=== PATIENT | male | born 1945 | race Caucasian/White ===

== ENCOUNTER 2025-01-08 09:33 | Inpatient (IN) | payer OTHER ==
[2025-01-08] MEDS ORDERED: NA CHLORIDE 0.9% 1,000 ML ONE (10:09)
[2025-01-08 10:17] LABS: Absolute Lymphocytes (CBC) 0.7 K/uL (0.7-4.9); Hematocrit 40.9 % (39.6-49.0); Hemoglobin 14.2 g/dL (13.6-17.9); MCH 30.7 pg (27.0-35.0); MCHC 34.7 g/dL (32.0-36.0); MCV 88.5 fL (80-100); MPV 8.2 fL (7.6-11.3); Nucleated RBC Absolute Count 0.0 (0-0); Nucleated Red Blood Cells % 0.0 % (0-0); RBC Red Blood Cell Count 4.62 M/uL (4.33-5.43); White Blood Count 9.90 thou/uL (4.3-10.9)
[2025-01-08 10:54] LABS: Glucose Level 186 mg/dL (74-106)
[2025-01-08 10:55] LABS: BUN Blood Urea Nitrogen > 150 mg/dL (7-18)
[2025-01-08 10:56] LABS: ALT/SGPT 21 U/L (16-61); AST/SGOT < 3 U/L (15-37)
[2025-01-08 10:57] LABS: Albumin 3.1 g/dL (3.4-5.0); Albumin/Globulin Ratio 0.8 (1.1-1.8); Alkaline Phosphatase 51 U/L (45-117); Globulin 3.8 g/dL (2.3-3.5); Lipase 243 U/L (13-75); Troponin High Sensitivity 16.9 (<58.9)
[2025-01-08 11:07] LABS: Anion Gap 30.6 mEq/L (5.0-15.0)
[2025-01-08 12:26] LABS: ALT/SGPT 22 U/L (16-61); Albumin 2.9 g/dL (3.4-5.0); Albumin/Globulin Ratio 0.8 (1.1-1.8); Alkaline Phosphatase 46 U/L (45-117); Anion Gap 29.7 mEq/L (5.0-15.0); BUN Blood Urea Nitrogen 167 mg/dL (7-18); Globulin 3.5 g/dL (2.3-3.5); Glucose Level 129 mg/dL (74-106)
[2025-01-08 12:33] LABS: AST/SGOT < 10 U/L (15-37); Potassium 7.7 mEq/L (3.5-5.1)
[2025-01-08 12:35] LABS: Potassium 7.6 mEq/L (3.5-5.1)
--- NOTE | 2025-01-08 13:13 | EDPHYS ---
Physician Documentation [facility] Name: Jagdish Pepper Jr Age: 79 yrs Sex: Male : 1945 Arrival Date: 01/08/2025 Time: 09:33 Bed 20 Private MD: ED Physician Ravin Kapadia HPI: 01/08 09:57 This 79 yrs old Male presents to ER via Ambulatory with complaints of dr5 Diarrhea. 09:57 The patient presents to the emergency department with diarrhea, 5 to 7 days. Onset: The dr5 symptoms/episode began/occurred 7 day(s) ago. Patient is a 79-year-old male who is coming in with diarrhea for the past 5 to 7 days. Patient appears to possibly have dementia. Patient reports no past medical history. No previous records at this hospital to review. Patient denies pain. Patient states he has been not urinating and has diarrhea without melena for the past 5 days.. Historical: - Allergies: 09:59 No Known Allergies; jl7 - Home Meds: 11:58 None [Active]; jl7 - PMHx: 11:58 None; jl7 - PSHx: 11:58 None; jl7 - Immunization history:: Adult Immunizations unknown. - Infectious Disease History:: Denies. - Social history:: Patient/guardian denies using Smoking status: unknown. ROS: 09:57 Constitutional: as per hpi dr5 Exam: 09:57 Constitutional: This is a well developed, well nourished patient who is awake, alert, dr5 and in no acute distress. Head/Face: Normocephalic, atraumatic. Eyes: Pupils equal round and reactive to light, extra-ocular motions intact. Lids and lashes normal. Conjunctiva and sclera are non-icteric and not injected. Cornea within normal limits. Periorbital areas with no swelling, redness, or edema. Neck: Trachea midline, no thyromegaly or masses palpated, and no cervical lymphadenopathy. Supple, full range of motion without nuchal rigidity, or vertebral point tenderness. No Meningismus. Chest/axilla: Normal chest wall appearance and motion. Nontender with no deformity. No lesions are appreciated. Cardiovascular: Regular rate and rhythm with a normal S1 and S2. Normal PMI, no JVD. No pulse deficits. Respiratory: Lungs have equal breath sounds bilaterally, clear to auscultation. No rales, rhonchi or wheezes noted. No increased work of breathing, no retractions or nasal flaring. Back: No spinal tenderness. No costovertebral tenderness. Full range of motion. Skin: Warm, dry with normal turgor. Normal color with no rashes, no lesions, and no evidence of cellulitis. MS/ Extremity: Pulses equal, no cyanosis. Neurovascular intact. Full, normal range of motion. Neuro: Awake and alert, GCS 15. Patient answers questions appropriately but does not expand and does not seem like he knows exactly what is going on. Patient reports he has been having diarrhea. Vital Signs: 09:56 BP 157 / 89; Pulse 97; Resp 17; Temp 97.9; Pulse Ox 98% on R/A; Pain 0/10; jl7 11:00 BP 142 / 72; Pulse 67; Resp 20; Pulse Ox 98% on R/A; me1 12:00 BP 130 / 78; Pulse 70; Resp 20; Pulse Ox 97% ; me1 13:00 BP 150 / 90; Pulse 83; Resp 17; Pulse Ox 97% ; me1 14:00 BP 141 / 72; Pulse 83; Resp 24; Pulse Ox 97% ; me1 15:00 BP 150 / 91; Pulse 92; Resp 13; Pulse Ox 97% ; me1 09:56 Pain Scale: Adult jl7 Procedures: 15:14 Aguilar cath inserted by myself - 18 Fr. Returned bloody urine. Returned taylor urine. To dr5 gravity drainage. other I clamped aguilar after 1200 cc of urine return. Urine output = 1200 ml's. Patient tolerated well. MDM: 09:46 Medical Screening Exam initiated dr5 01/09 10:13 Differential diagnosis: Nonspecific abd pain, gastritis, cholecystitis, pancreatitis, dr5 appendicitis, diverticulitis, viral gastroenteritis, gastroenteritis, Kidney failure, heart failure. Data reviewed: vital signs, nurses notes, lab test result(s), cardiac enzymes, troponin i, CBC, white blood cell count, hemoglobin, hematocrit, platelets, electrolytes, sodium, potassium, chloride, serum bicarbonate, BUN, creatinine, serum glucose, urinalysis, EKG, radiologic studies, CT scan. Consideration of Admission/Observation Patient was admitted/placed on observation. Management of patient was discussed with the following: Hospitalist: Hospitalist. Inspector Structural Bonding: General surgery. I considered the following discharge prescriptions or medication management in the emergency department I discussed and recommended Over The Counter medications, Medications were administered in the Emergency Department. See MAR. Care significantly affected by the following chronic conditions: Unknown as patient has never been to the hospital before. Care significantly affected by the following Social Determinants of Health: Poor access to healthcare and/or lack of insurance, Poor access to transportation, Problems related to employment. Counseling: I had a detailed discussion with the patient and/or guardian regarding the historical points, exam findings, and any diagnostic results supporting the discharge/admit diagnosis, the presence of at least one elevated blood pressure reading (>120/80) during this emergency department visit, lab results, radiology results, the need for further work-up and treatment in the hospital. Special discussion: I have referred the patient to see his PCP for further evaluation of high blood pressure. ED course: Patient was admitted to ICU. Surgery consulted and placed dialysis catheter in right leg. Patient left ER to dialysis.. 01/08 09:50 Order name: CBC with Diff; Complete Time: 10:47 dr5 01/08 09:50 Order name: Troponin HS; Complete Time: 12:37 01/08 09:50 Order name: CMP; Complete Time: 12:37 01/08 09:50 Order name: Lipase; Complete Time: 12:37 dr5 01/08 11:07 Order name: CMP; Complete Time: 12:37 dr5 01/08 13:26 Order name: ABG Arterial Blood Gas; Complete Time: 13:54 EDMS 01/08 13:26 Order name: Magnesium; Complete Time: 15:04 EDMS 01/08 13:26 Order name: Phosphorus; Complete Time: 15:04 EDMS 01/08 13:26 Order name: CBC with Automated Diff EDMS 01/08 13:26 Order name: CBC with Automated Diff EDMS 01/08 13:26 Order name: Comprehensive Metabolic Panel EDMS 01/08 13:26 Order name: Comprehensive Metabolic Panel EDMS 01/08 13:27 Order name: Magnesium EDMS 01/08 13:27 Order name: Magnesium EDMS 01/08 13:27 Order name: Phosphorus EDMS 01/08 13:27 Order name: Phosphorus EDMS 01/08 11:07 Order name: CT Abd/Pelvis - Without Contrast; Complete Time: 13:45 dr5 01/08 13:26 Order name: CONS Physician Consult [facility] 01/08 14:21 Order name: CONS Physician Consult [facility] 01/08 09:50 Order name: Cardiac monitoring; Complete Time: 10:18 dr5 01/08 09:50 Order name: EKG - Nurse/Tech; Complete Time: 10:18 dr5 01/08 09:50 Order name: IV Saline Lock; Complete Time: 10: dr5 01/08 09:50 Order name: Labs collected and sent; Complete Time: : dr5 01/08 09:50 Order name: O2 Per Protocol; Complete Time: 10: dr5 01/08 09:50 Order name: O2 Sat Monitoring; Complete Time: : dr5 EC/09 10:15 Rate is 79 beats/min. Rhythm is regular. QRS [place] is Normal. SD interval is normal at dr5 152 msec. QRS interval is normal. QT interval is normal at 364 msec. Administered Medications: 10:18 Drug: NS 0.9% IV 2000 ml IV at 1000 ml once; to be given as a bolus over 60 minutes me1 Route: IV; Rate: 1000 ml; Site: right antecubital; 12:57 Follow up: Response: No adverse reaction; IV Status: Completed infusion; IV Intake: me1 1000ml Disposition: 17:07 Co-signature as Attending Physician, Ravin Kapadia I agree with the assessment ci and plan of care. I reviewed the patient's care provided by the Advanced Practice Provider and agree with the diagnosis and treatment plan. Disposition Summary: 01/08/25 13:12 Hospitalization Ordered Notes: Hospitalization Status: Inpatient Admission dr5 Provider: Riky Arrington dr5 Location: Intensive Care Unit dr5 Condition: Serious dr5 Problem: new dr5 Symptoms: have worsened dr5 Bed/Room Type: Standard dr5 Room Assignment: 2-(01/08/25 13:56) sp Diagnosis - Acute kidney failure, unspecified dr5 - Hyperkalemia dr5 - Diarrhea, unspecified dr5 Forms: - Medication Reconciliation Form dr5 - SBAR form dr5 - Leadership Thank You Letter dr5 Critical care time excluding procedures: 01/09 10:13 Critical care time: Bedside Care: 30 minutes, Consultation: 5 minutes. Total time: 35 dr5 minutes Signatures: Dispatcher [employer] [facility] Verito Sierra Jahala, RN RN jl7 Cheryl Natarajan RN RN me1 Iht[place]unekaaliyahu Shaunelva Pandey, Bry, CODING AND REIMBURSEMENT SPECIALIST-C CODING AND REIMBURSEMENT SPECIALIST-Cdr5 Corrections: (The following items were deleted from the chart) 01/08 09:51 09:51 CBC+H.LAB.BRZ ordered. EDMS EDMS 09:51 09:51 Troponin High Sensitivity+C.LAB.BRZ ordered. EDMS EDMS 09:51 09:51 COMPREHENSIVE METABOLIC PANEL+C.LAB.BRZ ordered. EDMS EDMS 09:51 09:51 LIPASE+C.LAB.BRZ ordered. EDMS EDMS 11:58 09:57 Abdomen Pelvis W Con+CT.RAD.BRZ ordered. EDMS EDMS 13:56 13:12 dr5 sp 15:16 09:57 Constitutional: This is a well developed, well nourished patient who is awake, dr5 alert, and in no acute distress. Head/Face: Normocephalic, atraumatic. Eyes: Pupils equal round and reactive to light, extra-ocular motions intact. Lids and lashes normal. Conjunctiva and sclera are non-icteric and not injected. Cornea within normal limits. Periorbital areas with no swelling, redness, or edema. Neck: Trachea midline, no thyromegaly or masses palpated, and no cervical lymphadenopathy. Supple, full range of motion without nuchal rigidity, or vertebral point tenderness. No Meningismus. Chest/axilla: Normal chest wall appearance and motion. Nontender with no deformity. No lesions are appreciated. Cardiovascular: Regular rate and rhythm with a normal S1 and S2. Normal PMI, no JVD. No pulse deficits. Respiratory: Lungs have equal breath sounds bilaterally, clear to auscultation. No rales, rhonchi or wheezes noted. No increased work of breathing, no retractions or nasal flaring. Back: No spinal tenderness. No costovertebral tenderness. Full range of motion. Skin: Warm, dry with normal turgor. Normal color with no rashes, no lesions, and no evidence of cellulitis. MS/ Extremity: Pulses equal, no cyanosis. Neurovascular intact. Full, normal range of motion. Neuro: Awake and alert, GCS 15, oriented to person, place, time, and situation. Cranial nerves II-XII grossly intact. Motor strength 5/5 in all extremities. Sensory grossly intact. Cerebellar exam normal. Normal gait. dr5 15:16 09:57 Abdomen/GI: Inspection: abdomen appears normal, Bowel sounds: normal, Palpation: dr5 mild abdominal tenderness, in all quadrants, dr5
--- NOTE | 2025-01-08 13:13 | ER ---
Nurse's Notes [facility] Name: Jagdish Pepper Jr Age: 79 yrs Sex: Male : 1945 Arrival Date: 01/08/2025 Time: 09:33 Bed 20 Private MD: Diagnosis: Acute kidney failure, unspecified;Hyperkalemia;Diarrhea, unspecified Presentation: 01/08 09:56 Chief complaint: Patient states: c/o diarrhea x5 day, denies pain. Coronavirus screen: jl7 diarrhea. Ebola Screen: No symptoms or risks identified at this time. Initial Sepsis Screen: Does the patient meet any 2 criteria? HR > 90 bpm. No. Patient's initial sepsis screen is negative. Does the patient have a suspected source of infection? No. Patient's initial sepsis screen is negative. Risk Assessment: Do you want to hurt yourself or someone else? Patient reports no desire to harm self or others. Onset of symptoms was January 03, 2025. 09:56 Method Of Arrival: Ambulatory jl7 09:56 Acuity: BRENDA 3 jl7 Triage Assessment: 09:59 General: Appears uncomfortable, Behavior is cooperative, Smells of Reports feeling ill jl7 for > 3 days, fatigue for >3 days, Denies. Pain: Denies pain. GI: Reports diarrhea, intolerance of fluids, intolerance of food, since 01/03/25. Historical: - Allergies: 09:59 No Known Allergies; jl7 - Home Meds: 11:58 None [Active]; jl7 - PMHx: 11:58 None; jl7 - PSHx: 11:58 None; jl7 - Immunization history:: Adult Immunizations unknown. - Infectious Disease History:: Denies. - Social history:: Patient/guardian denies using Smoking status: unknown. Screenin:05 [facility] ED Fall Risk Assessment (Adult) History of falling in the last 3 months, me1 including since admission No falls in past 3 months (0 pts) Confusion or Disorientation No (0 pts) Intoxicated or Sedated No (0 pts) Impaired Gait No (0 pts) Mobility Assist Device Used No (0 pt) Altered Elimination No (0 pt) Score/Fall Risk Level 0 - 2 = Low Risk Maintained a safe environment, Provided non-skid footwear, Hourly rounding (assess needs \T\ fall precautionary measures) done. Abuse screen: Denies threats or abuse. Nutritional screening: No deficits noted. Tuberculosis screening: No symptoms or risk factors identified. Assessment: 10:05 General: Appears ill, well groomed, well developed, well nourished, Behavior is calm, me1 cooperative, appropriate for age, Reports c/o diarrhea x5 day, denies pain. Pain: Denies pain. Neuro: Level of Consciousness is awake, alert, obeys commands, Oriented to person, place, time, situation, Appropriate for age. Cardiovascular: Patient's skin is warm and dry. Respiratory: Airway is patent Respiratory effort is even, unlabored, Respiratory pattern is regular, symmetrical. GI: Reports diarrhea, since a week ago. : No signs and/or symptoms were reported regarding the genitourinary system. EENT: No signs and/or symptoms were reported regarding the EENT system. Derm: Skin is intact, is healthy with good turgor, Skin is pink, warm \T\ dry. Musculoskeletal: Circulation, motion, and sensation intact. Range of motion: intact in all extremities. 13:45 General: Dr Ugalde at bedside placing temporary hemodialysis catheter to R groin. me1 14:58 General: Report given to ELVIS Malin in ICU. Patient is to be transported to dialysis [facility] from ER. Dea is going to ensure patient has telemetry in place in dialysis. . Vital Signs: 09:56 BP 157 / 89; Pulse 97; Resp 17; Temp 97.9; Pulse Ox 98% on R/A; Pain 0/10; jl7 11:00 BP 142 / 72; Pulse 67; Resp 20; Pulse Ox 98% on R/A; me1 12:00 BP 130 / 78; Pulse 70; Resp 20; Pulse Ox 97% ; me1 13:00 BP 150 / 90; Pulse 83; Resp 17; Pulse Ox 97% ; me1 14:00 BP 141 / 72; Pulse 83; Resp 24; Pulse Ox 97% ; me1 15:00 BP 150 / 91; Pulse 92; Resp 13; Pulse Ox 97% ; me1 09:56 Pain Scale: Adult jl7 ED Course: 09:39 Patient arrived in ED. gl 09:46 Bry Pandey FNP-C is PHCP. dr5 09:46 Ravin Kapdaia is Attending Physician. dr5 09:59 Triage completed. jl7 10:05 No provider procedures requiring assistance completed. me1 10:05 Patient has correct armband on for positive identification. Bed in low position. Call me1 light in reach. Side rails up X2. Provided Education on: POC. Verbalized understanding.. Client placed on continuous cardiac and pulse oximetry monitoring. NIBP monitoring applied. case packer and sealer on. Pulse ox on. NIBP on. 10:18 Lipase Sent. me1 10:18 CMP Sent. me1 10:18 CBC with Diff Sent. me1 10:18 Troponin HS Sent. me1 10:18 Initial lab(s) drawn, by ED staff, sent to lab. EKG done, by ED staff, reviewed by jennifer CHRIS. Inserted saline lock: 22 gauge in right antecubital area, using aseptic technique. 10:43 Cheryl Natarajan, RN is Primary Nurse. me1 11:17 CMP Sent. me1 11:59 Arm band placed on right wrist. jl7 12:50 CT Abd/Pelvis - Without Contrast In Process Unspecified. EDMS 13:12 Riky Arrintgon is Hospitalizing Provider. dr5 14:45 Inserted saline lock: 22 gauge in left hand, using aseptic technique. Flushed with 10 em1 mL NS. 14:59 Gunderson cath inserted, using sterile technique, 18 Fr., by ED staff, balloon inflated, to me1 gravity drainage. 15:29 Patient admitted, IV remains in place. me1 Administered Medications: 10:18 Drug: NS 0.9% IV 2000 ml IV at 1000 ml once; to be given as a bolus over 60 minutes me1 Route: IV; Rate: 1000 ml; Site: right antecubital; 12:57 Follow up: Response: No adverse reaction; IV Status: Completed infusion; IV Intake: me1 1000ml Medication: 10:05 VIS not applicable for this client. me1 Intake: 12:57 IV: 1000ml; Total: 1000ml. me1 Output: 15:05 Urine: 1200ml (Gunderson); Total: 1200ml. me1 Outcome: 13:12 Decision to Hospitalize by Provider. dr5 15:29 Admitted to accompanied by nurse, on monitor, with chart, Report called to jennifer Malin RN. Admitted to ICU -2. I took patient to dialysis and put telemetry box on patient, called Zamzam in tele to ensure box was on. Gave an updated report to ELVIS Dhillon in ICU as Dea was with a patient. 15:29 Condition: stable 15:29 Instructed on the need for admit, 15:31 Patient left the ED. me1 Signatures: Dispatcher [employer] Dereck Terrell em1 Tommy Koo RN RN jl7 Cheryl Natarajan RN RN me1 Bry Pandey, CUSTOMER SERVICE ATTENDANT-C CUSTOMER SERVICE ATTENDANT-Cdr5 Dena Glasgow, Reg Reg gl Corrections: (The following items were deleted from the chart) 10:51 09:56 Chief complaint: Patient states: c/o diarrhea x5 day, denies pain jl7 me1
[2025-01-08] MEDS ORDERED: ACETAMINOPHEN 325 MG TABLET PO PRN (13:16)
[2025-01-08] MEDS ORDERED: SODIUM ZIRCONIUM CYCLOSILICATE 10 GM/PKT ONE (13:36)
[2025-01-08] MEDS: ALBUTEROL 2.5 MG/3 ML NEB SOL NEB ONE ×2 (13:39→14:11)
[2025-01-08] MEDS: D5W 1,000 ML with NA BICARB 8.4% 150 MEQ IV SCH (13:41)
[2025-01-08] MEDS ORDERED: INSULIN REGULAR (HUMAN) 100 UNIT/ML ONE (13:41)
--- NOTE | 2025-01-08 13:41 | RAD REPORT ---
EXAMINATION: CT Abdomen Pelvis Wo Contrast CLINICAL INDICATION: Male, 79 years old. ABD PAIN TECHNIQUE: CT abdomen and pelvis was performed, without IV contrast, as per department protocol. Axia l, sagittal and coronal reconstructions were obtained. One or more of the following dose reduction techniques were used: Automated exposure control, adjustment of the mA and kV according to the patien t size, and iterative reconstruction. Unless otherwise specified, incidental findings do not require dedicated imaging follow-up. COMPARISON: No prior exam. FINDINGS: The lack of intravenous contrast limits the sensitivity of this exam for evaluation of solid visceral organs, vascular structures, and retroperitoneum. Motion artifact also limits evaluation. LOWER CHEST: The visualized lung bases are clear. LIVER: Normal in size and contour. No focal lesion. BILIARY SYSTEM: Suboptimal distention of the urinary bladder which limits evaluation. SPLEEN: Normal size. No focal lesion. PANCREAS: No mass, ductal dilation, or vanessa-pancreatic fluid. ADRENALS: Normal; no mass. KIDNEYS AND URETERS: Normal size and contour apart from left superior pole 4.2 cm cyst. Mild hydroure teronephrosis without obstructing calculi. URINARY BLADDER: Markedly distended. Numerous dependent calculi including a 2.6 cm dominant calculus. GASTROINTESTINAL TRACT: Moderate sliding hiatal hernia. No evidence of bowel obstruction, significant free fluid, free air or abscess. APPENDIX: Appendix not visualized, but no inflammatory changes in region of appendix. LYMPH NODES: No lymphadenopathy. MUSCULOSKELETAL: Degenerative lumbar spine changes with grade 1 spondylolisthesis at L5-S1 ADDITIONAL FINDINGS: Marked prostatomegaly. Small bilateral inguinal hernias containing fat. IMPRESSION: Markedly distended urinary bladder with bilateral hydroureteronephrosis, without obstructing calculi. Findings may relate to retrograde ureteral reflux. Marked prostatomegaly. Other incidental findings as above.
[2025-01-08] MEDS ORDERED: CALCIUM GLUCONATE 1 GM IVPB 1 GM/50 ML BAG IV ONE (13:42)
[2025-01-08] MEDS ORDERED: D50W 25 GM/50 ML SYRINGE IV ONE (13:42)
[2025-01-08 13:48] LABS: Blood O2 Saturation 97.5 % (92.0-98.5)
[2025-01-08] MEDS ORDERED: LIDOCAINE 1% 20 ML MDV ONE (13:51)
[2025-01-08] MEDS: SODIUM ZIRCONIUM CYCLOSILICATE 10 GM/PKT PO SCH (14:00)
[2025-01-08] MEDS: D50W 25 GM/50 ML SYRINGE IV ONE (14:13)
[2025-01-08] MEDS: INSULIN REGULAR (HUMAN) 100 UNIT/ML IV ONE (14:13)
--- NOTE | 2025-01-08 14:17 | P.OP ---
Preoperative diagnosis: Acute Kidney Failure / Hyperkalemia Postoperative diagnosis: Acute Kidney Failure / Hyperkalemia Primary procedure: Placement of LEFT Femoral Temporary Hemodialysis Catheter Secondary procedure: Ultrasound and Microset utilized Anesthesia: 1% Lidocaine Estimated blood loss: 20cc Specimen: none Findings: some resistance in wire placement in IVC Complications: None Implants: [place]auker Temporary HD Catheter 12 Fr Transferred to: ICU Condition: Serious
[2025-01-08] MEDS: CALCIUM GLUCONATE 1 GM IVPB 1 GM/50 ML BAG IV ONE (14:18)
[2025-01-08 14:47] LABS: Magnesium 3.3 mg/dL (1.6-2.4)
--- NOTE | 2025-01-08 15:43 | P.PN ---
Date of Service: 01/08/25 Patient seen and examined. Plan of care discussed with . Marycarmen Patterson. Patient reports bouts of diarrhea and difficulty with urination. Severe PHYLLIS Postobstructive uropathy Metabolic acidosis Severe hyperkalemia Stable blood pressure Nephrology consulted, patient seen and evaluated by Dr. Richardson who recommended emergent hemodialysis General surgery Dr. Ugalde consulted to placed a temporary dialysis catheter in the right groin. Dialysis initiated. Patient also given emergent treatment for hyperkalemia and started on IV bicarb drip. CT abdomen pelvis shows markedly distended urinary bladder and marked prostatomegaly as well as bilateral hydroureteronephrosis Gunderson catheter inserted for obstructive uropathy. May need to retain Gunderson catheter until outpatient follow-up with urology. Repeat labs after hemodialysis.
--- NOTE | 2025-01-08 16:10 | P.HP ---
Patient History Date of Service: 01/08/25 Reason for admission: Severe PHYLLIS History of Present Illness: Jagdish Pepper is a 79-year-old male with past medical history unknown as patient is experiencing acute metabolic encephalopathy at this time. Jagdish's chief complaint is diarrhea, on evaluation to the ED he was found to be in severe PHYLLIS with metabolic acidosis, CT abd/pelvis reports markedly distended urinary bladder and prostatomegaly as well as bilateral hydrouerteronephrosis. Laboratory evaluation significant for sodium 133, potassium 7.6, bicarb 10, anion gap 30.6, BUN/creatinine 150/20, GFR 2, serum glucose 26, calcium 8.4, phosphorus 12.9, magnesium 3.3, lipase 243. Jagdish will be admitted to hospitalist service for further evaluation and treatment of severe PHYLLIS, Nephrology consulted. Allergies No Known Allergies Allergy (Unverified 01/08/25 13:19) - Past Medical/Surgical History Past Medical History: Unable to obtain Past Surgical History: Unable to obtain - Social History Smoking Status: Unknown if ever smoked Review of Systems Other: Per HPI Physical Examination - Vital Signs Temperature: 97.9 F Blood Pressure: 142/72 Pulse: 67 Respirations: 20 - Physical Exam General: Alert, Oriented x1, Confused HEENT: Atraumatic, Normocephalic, PERRLA Neck: Supple Respiratory: Clear to auscultation bilaterally, Other (Tachypnea) Cardiovascular: Normal pulses, Regular rate/rhythm Gastrointestinal: Normal bowel sounds, Soft and benign Musculoskeletal: No clubbing Integumentary: No rashes Neurological: Normal speech, Normal tone - Studies Laboratory Data (last 24 hrs) 01/08/25 01/08/25 01/08/25 11:14 10:05 10:05 WBC Hgb Hct Plt Count Sodium 135 L 133 L Potassium 7.7 H* 7.6 H* BUN 167 H > 150 H Creatinine 24.00 H > 20.00 H Glucose 129 H 186 H Phosphorus 12.9 H* Magnesium 3.3 H Total Bilirubin 0.3 0.3 AST < 10 L < 3 L ALT 22 21 Alkaline Phosphatase 46 51 Lipase 243 H 01/08/25 10:05 WBC 9.90 Hgb 14.2 Hct 40.9 Plt Count 215 Sodium Potassium BUN Creatinine Glucose Phosphorus Magnesium Total Bilirubin AST ALT Alkaline Phosphatase Lipase Assessment and Plan - Plan Assessment and Plan Severe PHYLLIS Postobstructive uropathy Metabolic acidosis Severe hyperkalemia Acute metabolic encephalopathy -Admit to ICU -Consult nephrology, emergent dialysis today 01/08/2025 -Calcium gluconate, insulin with dextrose, albuterol treatment, - Repeat renal panel after dialysis - Sodium bicarb drip - ABG pH 7.25, [id number], PO2 111, HCO3 7.0 - Flomax - Sevelamer 800 mg TID -Gunderson catheter in place, will need follow up with urology outpatient, plan for catheter to remain at discharge DVT PPx heparin Full code LOS 2 to 3-day Discharge Plan: Home Plan to discharge in: 72 Hours - Advance Directives Does patient have a Living Will: No Does patient have a Durable POA for Healthcare: No Time Spent Managing Pts Care (In Minutes): 75
[2025-01-08] MEDS: SEVELAMER CARBONATE 800 MG TABLET PO SCH (16:48)
[2025-01-08] MEDS: HEPARIN 5000 UNIT/ML 1 ML VIAL SQ SCH (16:48)
[2025-01-08] MEDS: NA CHLORIDE 0.9% 1,000 ML IV SCH (16:48)
--- NOTE | 2025-01-08 19:08 | CON ---
Date of Consultation: 01/08/2025 Chief Complaint: Weakness, diarrhea. Reason For Consultation: PHYLLIS, hyperkalemia, and metabolic acidosis. History Of Present Illness: This is a 79-year-old man with no known past medical history. The patien t does not have established medical care as an outpatient. Stated he is healthy and going to the gym on regular basis, thus he does not need to have any medical evaluation. The patient stated he was h aving diarrhea for 1 week, more than 5-10 bowel movements a day, associated with weakness and decreas ed urine output. Thus he decided to come to the emergency room. Upon presentation to the ER, labs w ere significant for sodium 135, potassium 7.6, BUN 167, creatinine 24, with phosphorus of 13. The moody tobin was admitted for further evaluation. Past Medical History: None. Past Surgical History: Arm fracture. Family History: Noncontributory. Allergies: HAS SEASONAL ALLERGIES. NO KNOWN DRUG ALLERGIES. Review of Systems: Positive for weakness, diarrhea. Denied abdominal pain, nausea, vomiting, chest pain, palpitation. Also the patient reported decreased urine output. Physical Examination: Vital Signs: Reviewed. General: Awake, alert, oriented x3. Looks pale. Neck: Supple. No elevated JVD. Heart: Regular rate and rhythm. Normal S1, S2. Chest: Clear to auscultation bilaterally. No rales or wheezes. Abdomen: Soft and nontender. Extremities: No edema. Lab: Sodium 135, potassium 7.7, bicarb of 10, BUN 167, creatinine 24. Phosphorus 13, magnesium 1.3. White count 9.9, hemoglobin 14.2. Assessment And Plan: 1. Acute kidney injury. Likely the patient has underlying chronic renal disease. He has no labs don e before and not taking any outpatient medical care. We saw the patient on urgent dialysis. Dialysi s today and tomorrow. Renal dose medication. Avoid NSAID and contrast. 2. Distended bladder with mild hydronephrosis. We will insert Gunderson. We will start on Flomax and re peat renal ultrasound in 2 days. 3. Hyperkalemia. We will correct with dialysis. Received hyperkalemia treatment. We will discontin ue Lokelma. 4. Metabolic acidosis. Continue dialysis. We will discontinue bicarb drip. 5. Diarrhea. Hold off stool study. We will start on IV fluid. Thanks for allowing me to participate in the patient's care. Total time spent 75 minutes including d ocumentation, reviewing labs, and placing orders. TRACY Voice ID: [id number] Report ID: [id number]
[2025-01-08 19:32] VITALS: BMI 27.5
[2025-01-08] MEDS: TAMSULOSIN 0.4 MG SR CAP PO SCH (19:57)
[2025-01-08 20:45] LABS: Albumin 2.9 g/dL (3.4-5.0); Anion Gap 16.6 mEq/L (5.0-15.0); BUN Blood Urea Nitrogen 82.0 mg/dL (7-18); Glucose Level 98.0 mg/dL (74-106); Potassium 3.6 mEq/L (3.5-5.1)
--- NOTE | 2025-01-09 01:09 | OP ---
Date of Procedure: 01/08/2025 Surgeon: Bob Uaglde MD, Brief Hpi: The patient is a 79-year-old man who presents to the emergency room with acute kidney inj ury and significant hyperkalemia with a potassium in the 7 range on multiple checks. As such, he is deemed appropriate for emergent hemodialysis. I am consulted for placement of emergent temporary hem odialysis catheter. Preoperative Diagnosis: Acute kidney failure/hyperkalemia. Postoperative Diagnosis: Acute kidney failure/hyperkalemia. Procedure Performed: Placement of a left femoral temporary hemodialysis catheter using ultrasound gu idance and micro set utilized. Anesthesia: 1% lidocaine utilized. Estimated Blood Loss: Less than 20 cc. Specimen: None. Findings: There was some resistance on the placement of the wire deep into the inferior vena cava an d the catheter required repositioning after placement due to one of the ports not optimally functioni ng. Complications: None. Implants: Mahurkar temporary hemodialysis catheter 12-English 20 cm catheter placed in the right femo ral vein. The patient transferred to ICU in serious condition. Procedure In Detail: After informed consent was obtained, the patient was prepped and draped in the usual sterile fashion in the ER after adequate anesthesia was achieved with 1% lidocaine without epin ephrine. Ultrasound of the right inguinal region using the ultrasound probe, I used a micro introduc er needle to cannulate the right femoral vein on the first attempt. Microwire was advanced without i ssue at all at this point. I then made a small romain incision overlying the insertion site and placed a 5-English micro introducer sheath over the wire using Seldinger technique without issue. I then re moved the microwire at this point and advanced a standard wire into the femoral vein. The majority o f the wire advanced easily. However, near distal advancement, there was some slight obstructive resi stance to the wire. I was able to tore the wire and repositioned this to advance this beyond this po int. At this point, I performed sequential dilatation using Seldinger technique and placed the malina ter into the right femoral vein after removing the wire being called out for the second time. I then pulled back dark red nonpulsatile blood from both ports. However, one of the ports did not advance as easily and as such, I pulled the catheter back so much until good flow was appreciated from both p orts. At this point, both pulled back dark red nonpulsatile blood and flushed quite easily with ster ile saline and were flushed until completely clear with saline and I then packed with heparin at this point, the catheter placed. I secured the catheter using a 2-0 nylon suture to the skin and a steri le dressing placed over top. The patient will be sent for emergent dialysis at this point in the ICU . The patient tolerated the procedure well without complication and transferred to ICU in serious co ndition. All counts were correct at the end of the case. RENAN/DAGOL Voice ID: [id number] Report ID: [id number]
[2025-01-09 04:43] LABS: Absolute Lymphocytes (CBC) 0.9 K/uL (0.7-4.9); Hematocrit 40.0 % (39.6-49.0); Hemoglobin 14.4 g/dL (13.6-17.9); MCH 31.0 pg (27.0-35.0); MCHC 36.0 g/dL (32.0-36.0); MCV 86.3 fL (80-100); MPV 7.8 fL (7.6-11.3); Nucleated RBC Absolute Count 0.0 (0-0); Nucleated Red Blood Cells % 0.1 % (0-0); RBC Red Blood Cell Count 4.64 M/uL (4.33-5.43); White Blood Count 8.00 thou/uL (4.3-10.9)
[2025-01-09 05:03] LABS: ALT/SGPT 19.0 U/L (16-61); AST/SGOT 14.0 U/L (15-37); Albumin 2.9 g/dL (3.4-5.0); Albumin/Globulin Ratio 0.8 (1.1-1.8); Alkaline Phosphatase 47.0 U/L (45-117); Anion Gap 12.4 mEq/L (5.0-15.0); BUN Blood Urea Nitrogen 53.0 mg/dL (7-18); Globulin 3.6 g/dL (2.3-3.5); Glucose Level 108.0 mg/dL (74-106); Magnesium 2.4 mg/dL (1.6-2.4); Potassium 4.4 mEq/L (3.5-5.1)
--- NOTE | 2025-01-09 06:49 | P.PN ---
Date of Service: 01/09/25 Subjective Feeling much better, encephalopathy seems to be resolved Will downgrade to the floor No new complaints ROS 10 point ROS as noted above, otherwise negative Physical Exam General: AAO x 3, NAD HEENT: Atraumatic, Normocephalic, PERRLA Respiratory: Clear BBS, on room air Cardiovascular: NSR, S1-S2 present Gastrointestinal: Normal bowel sounds, Soft and benign on palpation Neurological: Normal speech, Normal tone Vitals Reviewed Problem list Severe PHYLLIS Postobstructive uropathy Metabolic acidosis Severe hyperkalemia Acute metabolic encephalopathy Assessment and Plan Severe PHYLLIS Postobstructive uropathy Metabolic acidosis Severe hyperkalemia Acute metabolic encephalopathy -downgrade to the floor -Consult nephrology, emergent dialysis today 01/08/2025, further dialysis per Nephrology -Calcium gluconate, insulin with dextrose, albuterol treatment - Repeat renal panel after dialysis - Sodium bicarb drip- stopped - ABG pH 7.25, TUL180, PO2 111, HCO3 7.0 (01/08) - Flomax - Sevelamer 800 mg TID -Gunderson catheter in place, will need follow up with urology outpatient, plan for catheter to remain at discharge -monitor urine output, 4225 ml since admission DVT PPx heparin Full code LOS 2 to 3-day Discharge Plan: Home Plan to discharge in: 72 Hours Time Spent Managing Pts Care (In Minutes): 35
[2025-01-09] MEDS: NACHLORIDE 0.45% 1,000 ML IV SCH (12:39)
--- NOTE | 2025-01-09 20:36 | RAD REPORT ---
EXAMINATION: US RETROPERITONEUM CLINICAL INDICATION: evaluate for hydronephrosis TECHNIQUE: Real-time ultrasonography of the abdomen was performed. COMPARISON: Prior day CT FINDINGS: RIGHT KIDNEY: Right renal length measurement: 11.3 cm. Echogenicity is normal. No calculus or solid mass. No hydronephrosis. . LEFT KIDNEY: Left renal length measurement: 11 cm. Echogenicity is normal. No calculus or solid mas s. No hydronephrosis. Left-sided hydroureter and pelviectasis.. Benign left upper pole renal cyst measuring 4.4 cm ADDITIONAL FINDINGS: The bladder is largely decompressed around a Gunderson catheter. IMPRESSION: Left-sided pelviectasis and hydroureter. No evidence of hydronephrosis. Benign left upper pole renal cyst.
[2025-01-10 04:14] LABS: Hepatitis B Surface Ab - Quant 3.63 mIU/mL (<8.0); Hepatitis B surface AG Interp. Nonreactive (Nonreactive)
[2025-01-10 04:15] LABS: HBsAG Nonreactive Report Report
[2025-01-10 09:03] LABS: Anion Gap 9.2 mEq/L (5.0-15.0); BUN Blood Urea Nitrogen 19.0 mg/dL (7-18); Glucose Level 99.0 mg/dL (74-106); Magnesium 2.1 mg/dL (1.6-2.4); Potassium 4.2 mEq/L (3.5-5.1)
[2025-01-10] MEDS: POTASS/SODIUM PHOSPHATE 1 PKT POWD.PACK PO SCH (10:00)
[2025-01-10] MEDS: POTASS/SODIUM PHOSPHATE 1 PKT POWD.PACK PO ONE (12:33)
--- NOTE | 2025-01-10 14:05 | P.PN ---
Date of Service: 01/10/25 Subjective Good conversation tolerating urinary catheter Kidneys improving No new complaints ROS 10 point ROS as noted above, otherwise negative Physical Exam General: Alert and oriented x 3, NAD, afebrile HEENT: Atraumatic, Normocephalic, PERRLA Respiratory: Good air movement, on room air Cardiovascular: Regular rate and rhythm, S1-S2 present Gastrointestinal: Normal bowel sounds, Soft and benign on palpation Neurological: Normal speech, Normal tone Vitals Reviewed Problem list Severe PHYLLIS Postobstructive uropathy Metabolic acidosis Severe hyperkalemia Acute metabolic encephalopathy Assessment and Plan Severe PHYLLIS Postobstructive uropathy Metabolic acidosis Severe hyperkalemia Acute metabolic encephalopathy - Consult nephrology, emergent dialysis today 01/08/2025, further dialysis per Nephrology - Calcium gluconate, insulin with dextrose, albuterol treatment- treatment of severe hyperkalemia - intially treated with Sodium bicarb drip- now stopped - ABG pH 7.25, [id number], PO2 111, HCO3 7.0 (01/08) - Flomax - Sevelamer 800 mg TID - Gunderson catheter in place, will need follow up with urology outpatient, plan for catheter to remain at discharge - Continue to monitor urine output DVT PPx heparin Full code LOS 2 to 3-day Discharge Plan: Home Plan to discharge in: 72 Hours Time Spent Managing Pts Care (In Minutes): 42
--- NOTE | 2025-01-11 02:09 | PN ---
Date of Progress Note: 01/10/2025 Chief Complaint: Acute kidney injury, hyperkalemia, metabolic acidosis. Subjective: The patient is a 79-year-old with no past medical history. The patient denies history o f diabetes mellitus, hypertension, kidney disease, or prostate problems. The patient [facility] because [facility] diarrhea. He developed diarrhea with 5-10 bowel movements per day, associated with weakness, decreased urine output and upon arrival to the hospital emergency room, workup showed potassium of 7.6, sodium 135, BUN 167, creatinine 24. Phosphorus 13. The patient was started on hem odialysis. Review of Systems: Denies chest pain, palpitation. Physical Examination: Lungs: Clear to auscultation bilaterally. Heart: S1, S2. Abdomen: Soft. Extremities: No edema. Laboratory Work: On arrival to the hospital showed potassium 7.7, bicarbonate 10, sodium 135, BUN 16 7, creatinine 24. Phosphorus 13, magnesium 1.3. Hemoglobin 14.2, white count 9.9. Impression And Plan: 1. Acute kidney injury. Monitor renal function closely. The patient developed acute kidney injury d ue to prerenal azotemia and nonoliguric acute tubular necrosis. Dialysis was started and catheter wi ll be removed when renal function is at baseline. 2. Distended bladder with mild hydronephrosis. The patient has a Gunderson catheter inserted and Flomax was started. Gunderson catheter will be removed and patient will have a bladder scan to evaluate for pos sible urinary retention. 3. Hypercalcemia. The patient received dialysis to correct hyperkalemia. 4. Metabolic acidosis. The patient received dialysis to treat metabolic acidosis as well as bicarbon ate. Primarily was started to treat severe metabolic acidosis. 5. Diarrhea. The patient received IV fluids for volume depletion and sodium bicarbonate to treat met abolic acidosis. EB/MODL Voice ID: [id number] Report ID: [id number]
[2025-01-11 07:53] LABS: Anion Gap 8.2 mEq/L (5.0-15.0); BUN Blood Urea Nitrogen 15.0 mg/dL (7-18); Glucose Level 100.0 mg/dL (74-106); Magnesium 2.0 mg/dL (1.6-2.4); Potassium 4.2 mEq/L (3.5-5.1)
[2025-01-11] MEDS: POTASSIUM PHOS IN 0.9 % NACL 15 MMOL/250 ML BAG IV ONE (09:48)
--- NOTE | 2025-01-11 11:02 | RAD REPORT ---
EXAMINATION: US RENAL ULTRASOUND CLINICAL INDICATION: N TECHNIQUE: Real-time ultrasonography of the abdomen was performed. COMPARISON: 01/09/2025 FINDINGS: RIGHT KIDNEY: Right renal length measurement: 10.8 x 4.9 x 4.7 cm. Normal in echogenicity and size. N o calculus, solid mass or hydronephrosis. Small cortical cysts present. LEFT KIDNEY: Left renal length measurement: 11.4 x 5.6 x 4.7 cm. Normal in echogenicity and size. No calculus, solid mass or hydronephrosis. 4.8 cm cyst present. URINARY BLADDER: Incompletely distended without gross abnormality detected. IMPRESSION: Bilateral renal cysts, largest on the left measuring up to 4.8 cm.
--- NOTE | 2025-01-11 14:45 | P.PN ---
Date of Service: 01/11/25 Subjective No complaints overnight Feeling much better Gunderson catheter still in place Renal function recovered ROS 10 point ROS as noted above, otherwise negative Physical Exam General: Alert and oriented x 3, NAD, afebrile HEENT: Atraumatic, Normocephalic, PERRLA Respiratory: Good air movement, on room air Cardiovascular: Regular rate and rhythm, S1-S2 present Gastrointestinal: Normal bowel sounds, Soft and benign on palpation Neurological: Normal speech, Normal tone Vitals Reviewed Problem list Severe PHYLLIS Postobstructive uropathy Metabolic acidosis Severe hyperkalemia Acute metabolic encephalopathy Assessment and Plan Severe PHYLLIS Postobstructive uropathy Metabolic acidosis Severe hyperkalemia Acute metabolic encephalopathy - Consult nephrology, emergent dialysis performed - intially treated with Sodium bicarb drip- now stopped - Flomax started -Renal ultrasound repeated 01/11 with no remaining hydroureteronephrosis - Gunderson catheter remains in place at this time - Await any additional recommendations from urology/nephrology - Possible discharge tomorrow plus or minus Gunderson catheter DVT PPx heparin Full code LOS 2 to 3-day Discharge Plan: Home Plan to discharge in: 24 hours Time Spent Managing Pts Care (In Minutes): 42
--- NOTE | 2025-01-11 15:39 | P.PN ---
Date of Service: 01/11/25
--- NOTE | 2025-01-11 16:24 | P.CNS ---
Date of Consult: 01/11/25 Chief Complaint: Severe PHYLLIS History of Present Illness: 79-year-old gentleman with no known/documented past medical history, but who has not seen a physician in years, presented via the emergency department with altered mental status and diarrhea from not having urinated in the last 5 to 7 days. Prior to that, he acknowledges having some dysuria as well as some obstructive LUTS as follows: Weak stream/incomplete emptying 5 Nocturia/straining 4 Frequency/urgency/intermittency denies AUA symptom score 18/35 He describes having had a UTI, which he thought was sexually associated from his over 20 years ago. He denies any associated fever or chills at present and denied any perineal pain. Upon admission to the emergency department, he was found to have severe acute renal failure and ultimately required hemodialysis; so a femoral catheter was placed in addition to a urethral Gunderson catheter. Apparently the catheter was placed without any difficulties. 01/08/2025 creatinine 24.0, BUN 167, phosphate 12.9, LFTs normal/low 01/11/2025 creatinine 0.9, BUN 15, phosphate 1.4 01/08/2025 CT abdomen and pelvis without contrast findings: Mild hydroureteronephrosis without obstructing calculi. Left upper pole 4.2 cm cyst. Bladder markedly distended with numerous dependent calculi including a 2.6 cm dominant calculus. Marked prostatomegaly. 01/09/2025 renal ultrasound impression: Left-sided pelviectasis and hydroureter. Benign left upper pole 4.4 cm renal cyst. Past medical history: Denies, but has not seen a physician in years Past surgical history: Remote left elbow surgery No known drug allergies Social history: Denies smoking or recreational drug use Denies family history of urologic malignancy Examination: Alert, awake, oriented in no acute distress No dyspnea or sign of respiratory distress Resting in hospital stretcher bed comfortably Urethral Gunderson catheter in place draining clear yellow urine Assessment and recommendation: 79-year-old gentleman without documented PMHx, but no physician seen in years, admitted with acute on chronic urinary retention causing bilateral hydroureteronephrosis, acute renal failure requiring hemodialysis, with multiple bladder calculi, largest 2.6 cm, in the setting of BPH with LUTS. -Repeat renal ultrasound to confirm resolution of bilateral hydroureteronephrosis in association with recovery of renal function at baseline. Addendum: No hydronephrosis on ultrasound obtained 01/11/2025 -Flomax 0.4 mg daily, and increase to 0.8 mg daily if tolerated -Keep urethral Gunderson catheter for at least 10 to 14 days to allow bladder recovery -Voiding trial to be established in the urology clinic between 01/19/2025 and 01/23/2025 - Subsequent follow-up for cystoscopy - Obtain a PSA 1 week prior to follow-up for cystoscopy - Recommend outpatient establishment of care with a PCP Allergies No Known Allergies Allergy (Unverified 01/08/25 13:19) Home medications list reviewed: Yes Home Medications: NK [No Home Meds] 01/08/25 - Past Medical/Surgical History Diabetic: No Past Medical History: Patient denies medical history - Social History Smoking Status: Unknown if ever smoked Alcohol use: No CD- Drugs: No Caffeine use: Yes Place of Residence: Home Physical Examination Temp Pulse Resp BP Pulse Ox 98.5 F 77 14 131/76 99 01/11/25 12:00 01/11/25 12:00 01/11/25 12:00 01/11/25 12:00 01/11/25 12:00 - Problems (1) Acute on chronic urinary retention Current Visit: Yes Status: Acute (2) Bilateral hydronephrosis Current Visit: Yes Status: Acute (3) PHYLLIS (acute kidney injury) Current Visit: Yes Status: Acute (4) BPH loc w urin obs/LUTS Current Visit: Yes Status: Acute (5) Bladder calculi Current Visit: Yes Status: Acute Conclusions/Impression: see A&P in HPI Critical Care: No Time Spent Managing Pts care (In Minutes): 60
--- NOTE | 2025-01-11 18:34 | PN ---
Date of Progress Note: 01/11/2025 Subjective: The patient was admitted to the hospital with acute kidney injury, severe hyperkalemia, dehydration. Patient received dialysis, recovered. The patient currently nonoliguric, eating well. Hemodialysis catheter femoral has been removed. Physical Examination: Vital Signs: Blood pressure 131/76, pulse of 77, afebrile. Chest: Clear to auscultation. Heart: S1, S2. Regular. Abdomen: Soft, nontender. Extremities: No edema. Neurologic: Alert. No focality. The patient had Gunderson catheter. Laboratory Data: Renal ultrasound showing left-sided hydroureter. Had renal cyst, benign. No evide nce of hydronephrosis. Hemoglobin 14.4. Sodium 136, potassium 4.2, bicarb 25, BUN 15, creatinine 0. 9, phosphorus 1.4, magnesium of 2, calcium 7.8. Current Medications: For the patient, heparin, Tylenol, K-Phos. Assessment And Plan: 1. Acute kidney injury secondary to obstructive uropathy/prerenal, recovered, resolved. No need for any renal replacement therapy. 2. Hypokalemia, hypophosphatemia. We will supplement. 3. Hypertension, controlled, optimal. 4. Hyperkalemia, status post dialysis, resolved. 5. Acidosis, resolved. Patient cleared from the Renal standpoint for discharge planning. Follow up with Urology. ANNA/CAROLINE Voice ID: [id number] Report ID: [id number]
[2025-01-11 23:04] VITALS: O2SAT 97
[2025-01-12 05:57] LABS: Anion Gap 8.9 mEq/L (5.0-15.0); BUN Blood Urea Nitrogen 13.0 mg/dL (7-18); Glucose Level 101.0 mg/dL (74-106); Potassium 3.9 mEq/L (3.5-5.1)
[2025-01-12] MEDS: POTASSIUM PHOS IN 0.9 % NACL 15 MMOL/250 ML BAG IV ONE (08:03)
--- NOTE | 2025-01-12 08:55 | P.DS ---
Admission Date: 01/08/25 Discharge Date: 01/12/25 Disposition: ROUTINE DISCHARGE Discharge Condition: GOOD Reason for Admission: Severe PHYLLIS Brief History of Present Illness: Jagdish Pepper is a 79-year-old male with past medical history unknown as patient is experiencing acute metabolic encephalopathy at this time. Jagdish's chief complaint is diarrhea, on evaluation to the ED he was found to be in severe PHYLLIS with metabolic acidosis, CT abd/pelvis reports markedly distended urinary bladder and prostatomegaly as well as bilateral hydrouerteronephrosis. Laboratory evaluation significant for sodium 133, potassium 7.6, bicarb 10, a nion gap 30.6, BUN/creatinine 150/20, GFR 2, serum glucose 26, calcium 8.4, phosphorus 12.9, magnesium 3.3, lipase 243. Jagdish will be admitted to hospitalist service for further evaluation and treatm ent of severe PHYLLIS, Nephrology consulted. Hospital Course: Problem list Severe PHYLLIS Postobstructive uropathy Metabolic acidosis Severe hyperkalemia Acute metabolic encephalopathy Patient was admitted to the hospital with acute renal failure, severe metabolic acidosis, metabolic encephalopathy, severe hyperkalemia and urinary retention. His CT scan on admission showed markedly distended urinary bladder with bilateral hydroureteronephrosis without obstructing calculi. Large prostateomegaly. Patient underwent emergent dialysis due to his electrolyte derangements and acute renal failure, Gunderson catheter was also inserted. The following days he had rapid and complete resolution of his acute kidney injury. Today his creatinine is 0.97 GFR of 80 BUN of 13 potassium 3.9 bicarb is 24. He was seen by urology who recommends that the Gunderson catheter stay in at discharge and he will follow-up with urology for a voiding trial between 01/19 and 01/23. He has been started on Flomax during his hospitalization, his dose was increased to 0.8 mg at bedtime. Renal ultrasound was repeated on 01/11 and showed resolution of the hydroureteronephrosis. New medication to be started his Flomax 0.8 mg at bedtime Recommend establishment with primary care doctor in the area in 1 to 2 weeks Follow-up with Dr. Brower in the office between 01/19 and 01/23 for voiding trial Follow-up with nephrologyDr. Momin in the clinic in 1 to 2 weeks for repeat BMP Vital Signs/Physical Exam: Temp Pulse Resp BP Pulse Ox 98.2 F 71 16 137/79 94 01/12/25 08:00 01/12/25 08:00 01/12/25 08:00 01/12/25 08:00 01/12/25 08:00 General: Alert, In no apparent distress, Oriented x3 HEENT: Atraumatic, PERRLA Neck: Supple, JVD not distended Respiratory: Clear to auscultation bilaterally, Normal air movement Cardiovascular: Regular rate/rhythm, Normal S1 S2 Gastrointestinal: Normal bowel sounds, No tenderness Musculoskeletal: No tenderness Integumentary: No rashes Neurological: Normal speech, Normal affect Urinary: Gunderson catheter Laboratory Data at Discharge: WBC 8.00 thou/uL (4.3-10.9) 01/09/25 04:27 Hgb 14.4 g/dL (13.6-17.9) 01/09/25 04:27 Hct 40.0 % (39.6-49.0) 01/09/25 04:27 Plt Count 214 thou/uL (152-406) 01/09/25 04:27 Sodium 136 mEq/L (136-145) 01/12/25 04:33 Potassium 3.9 mEq/L (3.5-5.1) 01/12/25 04:33 BUN 13 mg/dL (7-18) 01/12/25 04:33 Creatinine 0.97 mg/dL (0.70-1.30) 01/12/25 04:33 Glucose 101 mg/dL (74-106) 01/12/25 04:33 Phosphorus 1.4 mg/dL (2.5-4.9) L* 01/12/25 04:33 Magnesium 2.0 mg/dL (1.6-2.4) 01/11/25 07:28 Total Bilirubin 1.0 mg/dL (0.2-1.0) 01/09/25 04:27 AST 14 U/L (15-37) L 01/09/25 04:27 ALT 19 U/L (16-61) 01/09/25 04:27 Alkaline Phosphatase 47 U/L (45-117) 01/09/25 04:27 Lipase 243 U/L (13-75) H 01/08/25 10:05 Home Medications: Tamsulosin [Flomax] 0.8 mg PO BEDTIME #60 cap 01/12/25 New Medications: Tamsulosin [Flomax] 0.8 mg PO BEDTIME #60 cap Physician Discharge Instructions: Patient was admitted to the hospital with acute renal failure, severe metabolic acidosis, metabolic encephalopathy, severe hyperkalemia and urinary retention. His CT scan on admission showed markedly distended urinary bladder with bilateral hydroureteronephrosis without obstructing calculi. Large prostateomegaly. Patient underwent emergent dialysis due to his electrolyte derangements and acute renal failure, Gunderson catheter was also inserted. The following days he had rapid and complete resolution of his acute kidney injury. Today his creatinine is 0.97 GFR of 80 BUN of 13 potassium 3.9 bicarb is 24. He was seen by urology who recommends that the Gunderson catheter stay in at discharge and he will follow-up with urology for a voiding trial between 01/19 and 01/23. He has been started on Flomax during his hospitalization, his dose was increased to 0.8 mg at bedtime. Renal ultrasound was repeated on 01/11 and showed resolution of the hydroureteronephrosis. New medication to be started his Flomax 0.8 mg at bedtime Recommend establishment with primary care doctor in the area in 1 to 2 weeks Follow-up with Dr. Brower in the office between 01/19 and 01/23 for voiding trial Follow-up with nephrologyDr. Momin in the clinic in 1 to 2 weeks for repeat BMP Diet: Regular Activity: Ad jg Followup: Madelyn Momin MD [ACTIVE - CAN ADMIT] - 1-2 Weeks NONE,NONE [Primary Care Provider] - 1-2 Weeks Jay Brower [ACTIVE - CAN ADMIT] - 1-2 Weeks Time spent managing pt's care (in minutes): 45
--- NOTE | 2025-01-12 11:51 | P.PN ---
Date of Service: 01/12/25 Subjective: The patient was admitted to the hospital with acute kidney injury, severe hyperkalemia, dehydration. Patient received dialysis, recovered. The patient currently nonoliguric, eating well. Hemodialysis catheter femoral has been removed. Physical Examination: Temp Pulse Resp BP Pulse Ox 98.2 F 71 16 137/79 94 01/12/25 08:00 01/12/25 08:00 01/12/25 08:00 01/12/25 08:00 01/12/25 08:00 Chest: Clear to auscultation. Heart: S1, S2. Regular. Abdomen: Soft, nontender. Extremities: No edema. Neurologic: Alert. No focality. The patient had Gunderson catheter. Laboratory Last Values WBC 9.90 thou/uL (4.3-10.9) 01/08/25 10:05 RBC 4.62 M/uL (4.33-5.43) 01/08/25 10:05 Hgb 14.2 g/dL (13.6-17.9) 01/08/25 10:05 Hct 40.9 % (39.6-49.0) 01/08/25 10:05 MCV 88.5 fL (80-100) 01/08/25 10:05 MCH 30.7 pg (27.0-35.0) 01/08/25 10:05 MCHC 34.7 g/dL (32.0-36.0) 01/08/25 10:05 RDW 14.6 % (12.1-15.2) 01/08/25 10:05 Plt Count 215 thou/uL (152-406) 01/08/25 10:05 MPV 8.2 fL (7.6-11.3) 01/08/25 10:05 Neutrophils % 85.2 % (41.7-73.7) H 01/08/25 10:05 Lymphocytes % 7.1 % (15.3-44.8) L 01/08/25 10:05 Monocytes % 7.3 % (3.3-12.3) 01/08/25 10:05 Eosinophils % 0.1 % (0-4.4) 01/08/25 10:05 Basophils % 0.3 % (0-1.3) 01/08/25 10:05 Absolute Neutrophils 8.4 K/uL (1.8-8.0) H 01/08/25 10:05 Absolute Lymphocytes 0.7 K/uL (0.7-4.9) 01/08/25 10:05 Absolute Monocytes 0.7 K/uL (0.1-1.3) 01/08/25 10:05 Absolute Eosinophils 0.0 K/uL (0-0.5) 01/08/25 10:05 Absolute Basophils 0.0 K/uL (0-0.5) 01/08/25 10:05 Sodium 135 mEq/L (136-145) L 01/08/25 11:14 Potassium 7.7 mEq/L (3.5-5.1) H* 01/08/25 11:14 Chloride 103 mEq/L (98-107) 01/08/25 11:14 Carbon Dioxide 10 mEq/L (21-32) L 01/08/25 11:14 Anion Gap 29.7 mEq/L (5.0-15.0) H 01/08/25 11:14 BUN 167 mg/dL (7-18) H 01/08/25 11:14 Creatinine 24.00 mg/dL (0.70-1.30) H 01/08/25 11:14 Est GFR (CKD-EPI) 2 ml/min (=/>90) L 01/08/25 11:14 Glucose 129 mg/dL (74-106) H 01/08/25 11:14 Calcium 7.9 mg/dL (8.5-10.1) L 01/08/25 11:14 Phosphorus 12.9 mg/dL (2.5-4.9) H* 01/08/25 10:05 Magnesium 3.3 mg/dL (1.6-2.4) H 01/08/25 10:05 Total Bilirubin 0.3 mg/dL (0.2-1.0) 01/08/25 11:14 AST < 10 U/L (15-37) L 01/08/25 11:14 ALT 22 U/L (16-61) 01/08/25 11:14 Alkaline Phosphatase 46 U/L (45-117) 01/08/25 11:14 Troponin I High Sens 16.9 (<58.9) 01/08/25 10:05 Serum Total Protein 6.4 g/dL (6.4-8.2) 01/08/25 11:14 Albumin 2.9 g/dL (3.4-5.0) L 01/08/25 11:14 Globulin 3.5 g/dL (2.3-3.5) 01/08/25 11:14 Albumin/Globulin Ratio 0.8 (1.1-1.8) L 01/08/25 11:14 Lipase 243 U/L (13-75) H 01/08/25 10:05 Acetaminophen (Acetaminophen 325 Mg Tablet) 650 mg PO Q4HP PRN PRN Reason: temp > 101 F or mild pain Heparin Sodium (Porcine) (Heparin 5000 Unit/Ml 1 Ml Vial) 5,000 unit SQ Q8HR [facility] Last Admin: 01/12/25 08:03 Dose: 5,000 unit Heparin Sodium (Porcine) (Heparin 1,000 Unit/Ml Vial) 4,000 unit IV EVERY HD PRN PRN Reason: FOR DIALYSIS CATHETER CARE Potassium Phosphate (Potassium Phos 15 Mmol/250 Ml Ns) 15 mmol in 250 mls @ 62.5 mls/hr IV 1X ONE; Protocol Stop: 01/12/25 12:59 Last Admin: 01/12/25 08:03 Dose: 250 mls Tamsulosin HCl (Tamsulosin 0.4 Mg Sr Cap) 0.4 mg PO BEDTIME [facility] Last Admin: 01/11/25 21:09 Dose: 0.4 mg Assessment And Plan: 1. Acute kidney injury secondary to obstructive uropathy/prerenal, recovered, resolved. No need for any renal replacement therapy. Patient clear from the renal standpoint for DC planning 2. Hypokalemia, hypophosphatemia. We will supplement. 3. Hypertension, controlled, optimal. 4. Hyperkalemia, status post dialysis, resolved. 5. Acidosis, resolved. Patient cleared from the Renal standpoint for discharge planning. Follow up with Urology.
[2025-01-12 12:33] VITALS: BP 142/82; TEMP 97.7
== END 2025-01-12 13:18 | disposition home or self-care (01) | DRG 682 ==
LOC: ER 09:33 → ERHOLD 13:16 → 3RD-ICU 14:30 → 4TH 01-09 11:04
PROVIDERS: ADMIT Internal Medicine; ATTEND Hospitalist
PROC: 5A1D70Z Performance of Urinary Filtration, Intermittent, Less than 6 Hours Per Day (ICD-10-PCS; principal; 2020-01-09)
PROC: 06HY33Z Insertion of Infusion Device into Lower Vein, Percutaneous Approach (ICD-10-PCS; 2025-01-08)
DX: N17.9 Acute kidney failure, unspecified (principal); G93.41 Metabolic encephalopathy; E87.20 Acidosis, unspecified; N13.8 Other obstructive and reflux uropathy; E87.5 Hyperkalemia; N13.30 Unspecified hydronephrosis; R19.7 Diarrhea, unspecified; N32.89 Other specified disorders of bladder; E83.52 Hypercalcemia; E86.9 Volume depletion, unspecified; N40.1 Benign prostatic hyperplasia with lower urinary tract symptoms; R33.8 Other retention of urine; E83.39 Other disorders of phosphorus metabolism
CPT/HCPCS: 36415; 36600; 51702; 74176; 76770; 80048; 80053; 80069; 82805; 82947; 83690; 83735; 83970; 84100; 84484; 85025; 86706; 87340; 90935; 93005; 96360; 96361; 99285; J0612; J1644; J1815; J2003; J7030